=== PATIENT | male | born 1975 | race Caucasian/White ===

== ENCOUNTER → 2020-03-02 | Outpatient (CLI) | payer OTHER ==
[~2020-03-02] MED LIST: ACULAR 3 ML3 M1 OP; ALBUTEROL2.5 MG/0.5 INH; AMOXICILLIN500 M2 PO; NKHM; PREDNISONE20 M1 PO; TOBREX OPHTH S2.5 ML OPH
== END | disposition home or self-care (01) ==
LOC: COVID19 15:07
PROVIDERS: ATTEND Internal Medicine
DX: U07.1 COVID-19 (principal)